=== PATIENT | male | born 1965 | race Caucasian/White ===

== ENCOUNTER → 2024-04-20 | Day surgery (SDC) | payer OTHER ==
[~2024-04-20] VITALS: Ht 180.3 cm; Wt 90.7 kg
[~2024-04-20] MED LIST: ACETAMINOPHEN500 M4 PO; BUPivacaine 0.5% 30 ML IV ONE; Bupivacaine Hydrochloride/Ep2 30 ML VIAL ONE; CRUTCHES; Clindamycin Phosphate 50 ML IV ONE; Dexamethasone Sodium Phospha 4 MG/ML VIAL IV ONE; Ketamine Hydrochloride 50 MG/5 ML SYRINGE IV ONE; Ketorolac Tromethamine 30 MG/ML VIAL IV ONE; Lactated Ringer's Solution 1,000 ML IV ONE; Lactated Ringer's Solution 1,000 ML IV SCH; Lidocaine Hydrochloride 5 ML VIAL IV ONE; Midazolam Hydrochloride 2 MG/2 ML VIAL IV ONE; Ondansetron Hydrochloride 4 MG/2 ML VIAL IV ONE; PROPOFOL 200 MG/20 ML VIAL IV ONE; SEVOFLURANE 250 ML BOT INH ONE; TRAMADOL HCL50 MG PO; ULTRA-LIGHT RO1 EACH MC; VIBRA-TAB100 MG PO; Vancomycin Hydrochloride 1,000 MG VIAL ONE; WHEELCHAIR; XARELTO10 MG PO; fentaNYL CITRATE 100 MCG/2 ML VIAL IV ONE
[2024-04-20 09:21] VITALS: BP 135/92
[2024-04-20 13:20] VITALS: BP 125/83
[2024-04-20 13:35] VITALS: BP 129/81
[2024-04-20 13:50] VITALS: BP 123/87
[2024-04-20 14:05] VITALS: BP 116/60
[2024-04-20 14:20] VITALS: BP 110/54
== END | disposition home or self-care (01) ==
LOC: SDC 04-18 08:00
PROVIDERS: ATTEND Podiatrist
DX: S93.431A Sprain of tibiofibular ligament of right ankle, initial encounter (principal); S99.911A Unspecified injury of right ankle, initial encounter; S86.311A Strain of muscle(s) and tendon(s) of peroneal muscle group at lower leg level, right leg, initial encounter; S80.211A Abrasion, right knee, initial encounter; M65.871 Other synovitis and tenosynovitis, right ankle and foot; M21.6X1 Other acquired deformities of right foot; F10.90 Alcohol use, unspecified, uncomplicated; Z98.890 Other specified postprocedural states; Z79.899 Other long term (current) drug therapy; Z88.0 Allergy status to penicillin; Z88.8 Allergy status to other drugs, medicaments and biological substances; X58.XXXA Exposure to other specified factors, initial encounter; Y93.89 Activity, other specified; Y92.89 Other specified places as the place of occurrence of the external cause; Y99.8 Other external cause status

== ENCOUNTER → 2024-07-06 | Day surgery (SDC) | payer OTHER ==
[~2024-07-06] VITALS: Ht 180.3 cm; Wt 90.7 kg
[~2024-07-06] MED LIST changes: -Bupivacaine Hydrochloride/Ep2 30 ML VIAL ONE; -Clindamycin Phosphate 50 ML IV ONE; -Ketamine Hydrochloride 50 MG/5 ML SYRINGE IV ONE; -Ketorolac Tromethamine 30 MG/ML VIAL IV ONE; -Lactated Ringer's Solution 1,000 ML IV SCH; +Lidocaine Hydrochloride 30 ML VIAL ONE; -Midazolam Hydrochloride 2 MG/2 ML VIAL IV ONE; -SEVOFLURANE 250 ML BOT INH ONE; +SODIUM CHLORIDE 0.9% 100 ML IV ONE; +TYLENOL EXTRA500 MG PO; +ceFAZolin sodium/sodium chlor 20 ML IV ONE
[2024-07-06 06:30] VITALS: BP 123/92
[2024-07-06 08:18] VITALS: BP 103/67
[2024-07-06 08:33] VITALS: BP 113/81
[2024-07-06 08:48] VITALS: BP 119/82
== END | disposition home or self-care (01) ==
LOC: SDC 07-01 08:00
PROVIDERS: ATTEND Podiatrist
DX: T84.84XA Pain due to internal orthopedic prosthetic devices, implants and grafts, initial encounter (principal); Z88.0 Allergy status to penicillin; Z79.899 Other long term (current) drug therapy; Y83.8 Other surgical procedures as the cause of abnormal reaction of the patient, or of later complication, without mention of misadventure at the time of the procedure; Y92.89 Other specified places as the place of occurrence of the external cause